=== PATIENT | female | born 1985 ===

== ENCOUNTER 2018-03-09 18:22 | Inpatient (IN) | payer OTHER ==
[~2018-03-09] VITALS: Ht 160 cm; Wt 53.5 kg
[~2018-03-09 18:22] MED LIST: PRENATAL CAPLE1 EACH PO
== END 2018-03-11 11:12 | DRG 778 ==
LOC: ER 18:22 → OB/GYN 20:30 → SEC-K 20:30 → OB/GYN 03-10 07:21
PROC: BU45ZZZ Ultrasonography of Bilateral Ovaries (ICD-10-PCS; principal; 2018-03-09)
DX: O20.0 Threatened abortion (principal); R10.2 Pelvic and perineal pain